=== PATIENT | female | born 1950 | race Caucasian/White ===

== ENCOUNTER → 2017-06-15 12:50 | Outpatient (CLI) | payer OTHER, SELFPAY ==
[2017-06-20 15:38] LABS: HPV Reflexed? NOT INDICATED
== END ==
PROVIDERS: Family Provider Internal Medicine; PCP Internal Medicine; Visit Provider Internal Medicine
DX: Z12.4 Encounter for screening for malignant neoplasm of cervix (principal)
CPT/HCPCS: 88175; G0145

== ENCOUNTER → 2017-07-06 14:54 | Outpatient (CLI) | payer OTHER, SELFPAY ==
--- NOTE | 2017-07-06 14:56 | HPBI_ITS ---
MAMMOGRAPHY - BILATERAL SCREENING REASON FOR EXAM: Female, 66 years old. Routine annual screening examination. PERTINENT HISTORY: Mother with breast cancer. Prior right stereotactic breast biopsy. History of endometrial carcinoma. TECHNIQUE: Digital bilateral breast jered (3D mammographic acquisition) in the CC and MLO projections. 2-D mediolateral oblique (MLO) and craniocaudad (CC) views of both breasts were obtained. CAD: Full Field Digital Mammography with Computer Added Detection was performed. COMPARISON: Comparison is made with prior study dated June 24, 2016 and June 09, 2015. FINDINGS: Breast Composition: The breasts are extremely dense, which lowers the sensitivity of mammography. There are no dominant masses or suspicious calcifications. Stable bilateral benign-appearing axillary lymph nodes. No other significant abnormalities are identified. There has been no significant change since the prior study. HPBI/SCREENING MAMM (CAD), BILAT IMPRESSION: Stable bilateral screening mammogram. Yearly follow-up mammogram recommended. (A) ASSESSMENT CATEGORY: BIRADS Category 2: Benign. A letter regarding these results will be sent to the patient by the facility within 30 days. Approximately 10% of breast cancers are not detected by mammography. A normal mammogram should not delay biopsy of a clinically suspicious abnormality. [id number] Electronically Signed: Jin Sunshine MD at 8:06 EST Tel [phone], Service support ,
== END ==
PROVIDERS: Family Provider Internal Medicine; PCP Internal Medicine; Visit Provider Internal Medicine
DX: Z12.31 Encounter for screening mammogram for malignant neoplasm of breast (principal); M81.0 Age-related osteoporosis without current pathological fracture
CPT/HCPCS: 77063; 77067

== ENCOUNTER → 2017-07-11 15:48 | Outpatient (CLI) | payer OTHER, SELFPAY ==
--- NOTE | 2017-07-11 15:50 | HPBD_ITS ---
STUDY: DUAL ENERGY X-RAY ABSORPTIOMETRY / DXA REASON FOR EXAM: Female, 66 years old. The patient is postmenopausal. Loss of height. TECHNIQUE: Bone Mineral Density (BMD) measurements of lumbar spine and bilateral hips were obtained. COMPARISON: Comparison is made with prior examination of June 09, 2015. FINDINGS: Lumbar Spine (L1-L4): g/cm2 (0.900) / T-score (-2.5) / Z-score (-0.9) Findings are suggestive of osteoporosis with a high fracture risk. Left Femur Total: g/cm2 (0.822) / T-score (-1.5) / Z-score (-0.3) Left Femoral Neck: g/cm2 (0.736) / T-score (-2.2) / Z-score (-0.7) Right Femur Total: g/cm2 (0.753) / T-score (-2.0) / Z-score (-0.9) Right Femoral Neck: g/cm2 (0.713) / T-score (-2.3) / Z-score (-0.9) The T-Scores on the most recent prior examination were: Lumbar Spine (L1-L4): There has been improvement of bone density since the previous examination. Left Femur Total: which represents an improvement of 1.5%. Right Femur Total: which represents a worsening of 1.7%. HPBD/Dexa Bone Density Study (HP) IMPRESSION: The patient is considered osteoporotic as outlined below according to World [place] Organization (WHO) criteria with a high fracture risk. There has been improvement of bone density since the previous examination. Reference Information: The T-score is the number of standard deviations above or below the standard which is normal for young adults at their peak bone mineral density. The World Health Organization (WHO) interprets the T-scores as follows: Above -1 Normal bone density Between -1 and -2.5 Osteopenia Equal to / or below -2.5 Osteoporosis As a practical clinical guideline, osteopenia may be graded as follows: Mild -1 through -1.5 Moderate -1.6 through -2.0 Severe -2.1 through -2.4 The Z-score is the number of standard deviations above or below age-matched controls. A Z-score of less than -1.5 would be considered abnormal. References: 1. NIH Osteoporosis and Related Bone Diseases http://www.osteo.org 2. International Society for Clinical Densitometry http://www.iscd.org 3. National Osteoporosis Foundation http://www.nof.org Electronically Signed: Jin Sunshine MD at 9:00 EST Tel [phone], Service support ,
== END ==
PROVIDERS: Family Provider Internal Medicine; PCP Internal Medicine; Visit Provider Internal Medicine
DX: M81.0 Age-related osteoporosis without current pathological fracture (principal); Z78.0 Asymptomatic menopausal state
CPT/HCPCS: 77080

== ENCOUNTER → 2018-09-05 12:53 | Outpatient (CLI) | payer MEDICARE, OTHER, SELFPAY ==
--- NOTE | 2018-09-05 12:55 | BI_ITS ---
MAMMOGRAPHY - BILATERAL SCREENING REASON FOR EXAM: Female, 67 years old. Routine annual screening examination. PERTINENT HISTORY: Mother with breast cancer. Remote right stereotactic breast biopsy. TECHNIQUE: Digital bilateral breast jered (3D mammographic acquisition) in the CC and MLO projections. 2-D mediolateral oblique (MLO) and craniocaudad (CC) views of both breasts were obtained. CAD: Full Field Digital Mammography with Computer Added Detection was performed. COMPARISON: Comparison is made with prior study dated July 06, 2017 and June 24, 2016. FINDINGS: Breast Composition: The breasts are extremely dense, which lowers the sensitivity of mammography. There are no dominant masses or suspicious calcifications. No other significant abnormalities are identified. There has been no significant change since the prior study. BI/SCREENING MAMM (CAD), BILAT IMPRESSION: Stable bilateral screening mammogram. Yearly follow-up mammogram recommended. (A) ASSESSMENT CATEGORY: BIRADS Category 1: Negative. A letter regarding these results will be sent to the patient by the facility within 30 days. Approximately 10% of breast cancers are not detected by mammography. A normal mammogram should not delay biopsy of a clinically suspicious abnormality. [id number] Electronically Signed: Jin Sunshine, at 15:15 EDT , Service support ,
== END ==
PROVIDERS: Family Provider Internal Medicine; PCP Internal Medicine; Referring Provider Internal Medicine; Visit Provider Internal Medicine
DX: Z12.31 Encounter for screening mammogram for malignant neoplasm of breast (principal)
CPT/HCPCS: 77063; 77067

== ENCOUNTER → 2019-09-26 13:24 | Outpatient (CLI) | payer MEDICARE, OTHER, SELFPAY ==
--- NOTE | 2019-09-26 13:28 | BI_ITS ---
MAMMOGRAPHY - BILATERAL DIAGNOSTIC REASON FOR EXAM: Female, 68 years old. Left breast lump. PERTINENT HISTORY: Mother with breast cancer. Remote right stereotactic breast biopsy. History of endometrial carcinoma. TECHNIQUE: Digital bilateral breast jered (3D mammographic acquisition) in the CC and MLO projections. 2-D mediolateral oblique (MLO) and craniocaudad (CC) views of both breasts were obtained. CAD: Full Field Digital Mammography with Computer Added Detection was performed. COMPARISON: Comparison is made with prior examination dated September 05, 2018 and July 06, 2017. FINDINGS: Breast Composition: The breasts are extremely dense, which lowers the sensitivity of mammography. There are no dominant masses or suspicious calcifications. No other significant abnormalities are identified. There has been no significant change since the prior study. BI/DIAG MAMM W/CAD, BILAT IMPRESSION: Stable bilateral diagnostic mammogram. With the patient''s history of a palpable left breast lump, correlation with ultrasound is recommended. ASSESSMENT CATEGORY: BIRADS Category 0: Incomplete. Need additional imaging evaluation. A letter regarding these results will be sent to the patient by the facility within 30 days. Approximately 10% of breast cancers are not detected by mammography. A normal mammogram should not delay biopsy of a clinically suspicious abnormality. Electronically Signed: Jin Sunshine, at 9:04 EDT , Service support ,
--- NOTE | 2019-09-26 13:28 | US_ITS ---
STUDY: ULTRASOUND BREAST - LEFT REASON FOR EXAM: Female, 68 years old. Palpable lump left breast. TECHNIQUE: Axial and longitudinal images of the LEFT breast were performed with a high resolution ultrasound transducer. # OF IMAGES: 24 COMPARISON: Comparison is made with prior mammogram done earlier today. FINDINGS: LEFT Breast: The medial lower quadrant of the left breast was examined by ultrasound. There is evidence of dense fibroglandular tissue. No solid or cystic mass lesion is seen. US/Breast Limited Unilateral IMPRESSION: No sonographic abnormality is seen. ASSESSMENT CATEGORY: BIRADS Category 1: Negative. A letter regarding these results will be sent to the patient by the facility within 30 days. Electronically Signed: Jin Sunshine, at 9:05 EDT , Service support ,
--- NOTE | 2019-09-26 13:35 | BD_ITS ---
STUDY: DUAL ENERGY X-RAY ABSORPTIOMETRY / DXA REASON FOR EXAM: Female, 68 years old. 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 COMPARISON: Comparison is made with prior examination of July 11, 2017. FINDINGS: Lumbar Spine (L1-L4): g/cm2 (0.825) / T-score (-3.1) / Z-score (-1.5) Findings are suggestive of osteoporosis with a high fracture risk. Left Femur Total: g/cm2 (0.786) / T-score (-1.8) / Z-score (-0.5) Left Femoral Neck: g/cm2 (0.719) / T-score (-2.3) / Z-score (-0.8) Right Femur Total: g/cm2 (0.718) / T-score (-2.3) / Z-score (-1.0) Right Femoral Neck: g/cm2 (0.706) / T-score (-2.4) / Z-score (-0.9) The T-Scores on the most recent prior examination were: Lumbar Spine (L1-L4): There has been worsening of bone density since the previous examination. Left Femur Total: which represents a worsening of 4.4%. Right Femur Total: which represents a worsening of 4.6%. BD/Dexa Bone Density Study IMPRESSION: The patient is considered osteoporotic as outlined below according to World Sandoval Organization (WHO) criteria with a high fracture risk. There has been worsening of bone density since the previous examination. Reference Information: The T-score is the number of standard deviations above or below the standard which is normal for young adults at their peak bone mineral density. The World Health Organization (WHO) interprets the T-scores as follows: Above -1 Normal bone density Between -1 and -2.5 Osteopenia Equal to / or below -2.5 Osteoporosis As a practical clinical guideline, osteopenia may be graded as follows: Mild -1 through -1.5 Moderate -1.6 through -2.0 Severe -2.1 through -2.4 The Z-score is the number of standard deviations above or below age-matched controls. A Z-score of less than -1.5 would be considered abnormal. References: 1. NIH Osteoporosis and Related Bone Diseases http://www.osteo.org 2. International Society for Clinical Densitometry http://www.iscd.org 3. National Osteoporosis Foundation http://www.nof.org Electronically Signed: Jin Sunshine, at 13:43 EDT , Service support ,
== END ==
PROVIDERS: PCP Internal Medicine; Referring Provider Internal Medicine; Visit Provider Internal Medicine
DX: N63.0 Unspecified lump in unspecified breast (principal); M81.0 Age-related osteoporosis without current pathological fracture; R92.8 Other abnormal and inconclusive findings on diagnostic imaging of breast
CPT/HCPCS: 76642; 77062; 77066; 77080; G0279

== ENCOUNTER → 2021-01-18 08:16 | Outpatient (CLI) | payer MEDICARE, OTHER, SELFPAY ==
--- NOTE | 2021-01-18 08:19 | US_ITS ---
History: Soft tissue mass Ultrasound of the neck: Findings: Ultrasound images of the region of the right sternal clavicular joint demonstrates a 5 mm nodular density consistent with a lymph node demonstrating normal internal architecture. No separate mass or fluid collection is seen. IMPRESSION: 5 mm lymph node. No evidence of a mass. at 1642 Reported and signed by: Armando Graham MD Electronically Signed: Armando Graham MD at 16:41 EDT Tel , Service support , US/Chest
== END ==
PROVIDERS: PCP Internal Medicine; Referring Provider Internal Medicine; Visit Provider Internal Medicine
DX: M89.8X8 Other specified disorders of bone, other site (principal)
CPT/HCPCS: 76604

== ENCOUNTER → 2021-02-03 07:33 | Outpatient (CLI) | payer MEDICARE, OTHER, SELFPAY ==
--- NOTE | 2021-02-03 07:30 | BI_ITS ---
MAMMOGRAPHY - BILATERAL SCREENING REASON FOR EXAM: Female, 70 years old. Routine annual screening examination. PERTINENT HISTORY: Mother with breast cancer. Remote right stereotactic breast biopsy. TECHNIQUE: Digital bilateral breast ángela (3D mammographic acquisition) in the CC and MLO projections. 2-D mediolateral oblique (MLO) and craniocaudad (CC) views of both breasts were obtained. CAD: Full Field Digital Mammography with Computer Added Detection was performed. COMPARISON: Comparison is made with prior study dated 09/26/2019 and 09/05/2018. FINDINGS: Breast Composition: The breasts are extremely dense, which lowers the sensitivity of mammography. There are no dominant masses or suspicious calcifications. Stable benign-appearing bilateral axillary lymph nodes. No other significant abnormalities are identified. There has been no significant change since the prior study. BI/SCRN MAMM (CAD)W/ÁNGELA BILAT IMPRESSION: Stable bilateral screening mammogram. Yearly follow-up mammogram recommended. (A) ASSESSMENT CATEGORY: BIRADS Category 2: Benign. A letter regarding these results will be sent to the patient by the facility within 30 days. Approximately 10% of breast cancers are not detected by mammography. A normal mammogram should not delay biopsy of a clinically suspicious abnormality. [id number] Electronically Signed: Jin Sunshine MD at 8:42 EDT , Service support ,
== END ==
PROVIDERS: PCP Internal Medicine; Referring Provider Internal Medicine; Visit Provider Internal Medicine
DX: Z12.31 Encounter for screening mammogram for malignant neoplasm of breast (principal); Z80.3 Family history of malignant neoplasm of breast
CPT/HCPCS: 77063; 77067

== ENCOUNTER → 2021-02-09 13:06 | Outpatient (CLI) | payer MEDICARE, OTHER, SELFPAY ==
--- NOTE | 2021-02-09 13:10 | RAD_ITS ---
STUDY: X-RAY - CERVICAL SPINE REASON FOR EXAM: Female, 70 years old. Pain. Evaluate for disc degeneration. TECHNIQUE: 5 view(s) of the cervical spine were obtained. COMPARISON: None FINDINGS: Osteopenia. Normal anterior atlantoaxial articulation. Normal odontoid process. Normal cervical lordosis. Diffuse uncovertebral and facet sclerosis. Intervertebral disc space narrowing at C4-5, C5-6, C6-7 and C7-T1 with osteophyte formation most marked at C5-6, C6-7 and C7-T1. Anterior bony neural foraminal encroachment and C4-5, C5-6 and C6-7 and C7-T1 on the right and mild anterior bony neural foraminal encroachment at C4-5 and C5-6 on the left. The soft tissue structures are unremarkable. RAD/Cerv Spine 4 or 5 Views IMPRESSION: Osteopenia with diffuse moderate cervical spondylosis as described. No acute abnormality, evidence of erosive changes or fusion. Electronically Signed: Francisco Dan MD at 9:52 EDT , Service support ,
== END ==
PROVIDERS: PCP Internal Medicine; Referring Provider Chiropractor; Visit Provider Chiropractor
DX: M99.01 Segmental and somatic dysfunction of cervical region (principal); M54.2 Cervicalgia; M99.05 Segmental and somatic dysfunction of pelvic region; M51.36 Other intervertebral disc degeneration, lumbar region; M99.03 Segmental and somatic dysfunction of lumbar region; M51.35 Other intervertebral disc degeneration, thoracolumbar region; M99.02 Segmental and somatic dysfunction of thoracic region; M51.34 Other intervertebral disc degeneration, thoracic region
CPT/HCPCS: 72050

== ENCOUNTER → 2021-04-19 07:58 | Outpatient (CLI) | payer MEDICARE, OTHER, SELFPAY ==
--- NOTE | 2021-04-19 08:00 | RAD_ITS ---
PROCEDURE: SMALL BOWEL SERIES DATE OF EXAMINATION: 04/19/2021.. INDICATION: Female, 70 years old. Irritable bowel syndrome. Pelvic irradiation due to endometrial carcinoma. PHYSICIAN: Jin Sunshine M.D. FLUOROSCOPY TIME (if supplied): (0:36) minutes/seconds. 9 images were obtained. TECHNIQUE: Radiographic and fluoroscopic images were taken of the small intestine following the ingestion of barium. COMPARISON: None. FINDINGS: A preliminary supine KUB was obtained. There is an unremarkable bowel gas pattern. Fecal material is present throughout the colon. Phleboliths are present within the pelvis. The lung bases are unremarkable. Surgical clips are seen in the pelvis and compared with prior hysterectomy. The patient orally ingested approximately 12 ounces of thin barium Normal visualized fundus, body, and antrum of the stomach. Normal duodenal bulb, C-loop, and proximal jejunum. Normal visualized mucosal folds of the jejunum and ileum. There are no demonstrated dilatations, strictures, or masses of the small intestine. There is no mass displacement of the loops of small intestine. There is a normal motor pattern with barium reaching the colon within approximately 30 minutes. Spot films under fluoroscopic observation demonstrated a normal terminal ileum and ileocecal valve. RAD/Small Bowel Series Only IMPRESSION: Normal small bowel series. Electronically Signed: Jin Sunshine MD at 15:33 EST , Service support ,
== END ==
PROVIDERS: PCP Internal Medicine; Referring Provider Internal Medicine; Visit Provider Internal Medicine
DX: K58.9 Irritable bowel syndrome, unspecified (principal)
CPT/HCPCS: 74250

== ENCOUNTER → 2022-02-09 | Outpatient (CLI) | payer MEDICARE, OTHER, SELFPAY ==
--- NOTE | 2022-02-09 11:20 | BI_ITS ---
MAMMOGRAPHY - BILATERAL SCREENING REASON FOR EXAM: Female, 71 years old. Routine annual screening examination. PERTINENT HISTORY: Mother with breast cancer. Prior right stereotactic breast biopsy. TECHNIQUE: Digital bilateral breast ángela (3D mammographic acquisition) in the CC and MLO projections. 2-D mediolateral oblique (MLO) and craniocaudad (CC) views of both breasts were obtained. CAD: Full Field Digital Mammography with Computer Added Detection was performed. COMPARISON: Comparison is made with prior examination of 02/03/2021 and 09/26/2019. FINDINGS: Breast Composition: The breasts are extremely dense, which lowers the sensitivity of mammography. There are no dominant masses or suspicious calcifications. No other significant abnormalities are identified. There has been no significant change since the prior study. BI/SCRN MAMM (CAD)W/ÁNGELA BILAT IMPRESSION: Stable bilateral screening mammogram. Yearly follow-up mammogram recommended. (A) ASSESSMENT CATEGORY: BIRADS Category 1: Negative. A letter regarding these results will be sent to the patient by the facility within 30 days. Approximately 10% of breast cancers are not detected by mammography. A normal mammogram should not delay biopsy of a clinically suspicious abnormality. [id number] Electronically Signed: Jin Sunshine MD at 12:21 EDT ,
--- NOTE | 2022-02-09 11:25 | BD_ITS ---
STUDY: DUAL ENERGY X-RAY ABSORPTIOMETRY / DXA REASON FOR EXAM: Female, 71 years old. 733.00OsteoporosisBONE DENSITY REASON FOR EXAM TECHNIQUE: Bone Mineral Density (BMD) measurements of lumbar spine and bilateral hips were obtained. COMPARISON: Comparison is made with prior study dated 09/26/2019. FINDINGS: Lumbar Spine (L1-L4): g/cm2 (0.718) / T-score (-3.1) / Z-score (-1.0) Findings are suggestive of osteoporosis with a high fracture risk. Left Femur Total: g/cm2 (0.703) / T-score (-2.0) / Z-score (-0.5) Left Femoral Neck: g/cm2 (0.585) / T-score (-2.4) / Z-score (-0.6) Right Femur Total: g/cm2 (0.711) / T-score (-1.9) / Z-score (-0.4) Right Femoral Neck: g/cm2 (0.587) / T-score (-2.4) / Z-score (-0.6) The T-Scores on the most recent prior examination were: Lumbar Spine (L1-L4): There has been worsening of bone density since the previous examination. Left Femur Total: which represents a worsening of 3.2%. Right Femur Total: which represents an improvement of 7.7%. BD/Dexa Bone Density Study IMPRESSION: The patient is considered osteoporotic as outlined below according to World Sand[place] Organization (WHO) criteria with a high fracture risk. There has been worsening of bone density since the previous examination. Reference Information: The T-score is the number of standard deviations above or below the standard which is normal for young adults at their peak bone mineral density. The World Health Organization (WHO) interprets the T-scores as follows: Above -1 Normal bone density Between -1 and -2.5 Osteopenia Equal to / or below -2.5 Osteoporosis As a practical clinical guideline, osteopenia may be graded as follows: Mild -1 through -1.5 Moderate -1.6 through -2.0 Severe -2.1 through -2.4 The Z-score is the number of standard deviations above or below age-matched controls. A Z-score of less than -1.5 would be considered abnormal. References: 1. NIH Osteoporosis and Related Bone Diseases www osteo.org 2. International Society for Clinical Densitometry www iscd.org 3. National Osteoporosis Foundation www nof.org Electronically Signed: Jin Sunshine MD at 11:08 EDT ,
== END | disposition home or self-care (01) ==
LOC: OPBD 11:17
PROVIDERS: PCP Internal Medicine; Referring Provider Internal Medicine; Visit Provider Internal Medicine
DX: Z12.31 Encounter for screening mammogram for malignant neoplasm of breast (principal); M81.0 Age-related osteoporosis without current pathological fracture; Z80.3 Family history of malignant neoplasm of breast; M85.80 Other specified disorders of bone density and structure, unspecified site
CPT/HCPCS: 77063; 77067; 77080

== ENCOUNTER → 2023-02-13 | Outpatient (CLI) | payer MEDICARE, OTHER, SELFPAY ==
--- NOTE | 2023-02-13 10:09 | BI_ITS ---
MAMMOGRAPHY - BILATERAL SCREENING REASON FOR EXAM: Female, 72 years old. Routine annual screening examination. PERTINENT HISTORY: Mother with breast cancer. History of endometrial and colorectal carcinoma. Remote right stereotactic breast biopsy. TECHNIQUE: Digital bilateral breast ángela (3D mammographic acquisition) in the CC and MLO projections. 2-D mediolateral oblique (MLO) and craniocaudad (CC) views of both breasts were obtained. CAD: Full Field Digital Mammography with Computer Added Detection was performed. COMPARISON: Comparison is made with prior study February 09, 2022 and February 03, 2021. FINDINGS: Breast Composition: The breasts are extremely dense, which lowers the sensitivity of mammography. There are no dominant masses or suspicious calcifications. Stable appearance of the fat-containing bilateral axillary lymph nodes. No other significant abnormalities are identified. There has been no significant change since the prior study. BI/SCRN MAMM (CAD)W/ÁNGELA BILAT IMPRESSION: Stable bilateral screening mammogram. Yearly follow-up mammogram recommended. (A) ASSESSMENT CATEGORY: BIRADS Category 2: Benign. A letter regarding these results will be sent to the patient by the facility within 30 days. Approximately 10% of breast cancers are not detected by mammography. A normal mammogram should not delay biopsy of a clinically suspicious abnormality. [id number] Electronically Signed: Jin Sunshine MD at 9:07 EDT ,
== END | disposition home or self-care (01) ==
PROVIDERS: PCP Internal Medicine; Referring Provider Internal Medicine; Visit Provider Internal Medicine
DX: Z12.31 Encounter for screening mammogram for malignant neoplasm of breast (principal)
CPT/HCPCS: 77063; 77067

== ENCOUNTER → 2023-06-23 | Outpatient (CLI) | payer MEDICARE, OTHER, SELFPAY ==
--- NOTE | 2023-06-23 14:42 | VDLE_ITS ---
Version 2 Reason For Study: Left leg pain RIGHT LEFT CFV is compressible, spontaneous, phasic, GSV is normal. competent and demonstrates normal CFV is compressible, spontaneous, phasic, augmentation. competent, and demonstrates normal Procedure augmentation. This is a venous duplex using B-mode, color FV is compressible, spontaneous, phasic, flow and spectral Doppler. competent and demonstrates normal augmentation. POP V is compressible, spontaneous, phasic, competent and demonstrates normal augmentation. T/P Trunk is compressible. PTV is compressible. LT PerV is compressible. Nonvascularized structure noted at the prox calf that measures 0.65 x 1.68 x 4.1 cm. VL/Venous Duplex US, Unilateral Interpretation Summary Deep veins of the left lower extremity are patent and compressible segmentally. There is no evidence of left lower extremity deep vein thrombosis. Valvular competence appears intac t within the proximal deep venous system on the left . The left great saphenous vein appears patent a nd compressible segmentally. A non-vascular, hypoechoic structure is noted in the left proximal calf, measuring 0.65 cm x 1.68 cm x 4.1 cm. This may represent a seroma. Clinical correlation is adv ised. The right common femoral vein is patent and compressible . Ordering Physician: Jovanna Moore Referring Physician: Jovanna Moore Performed By: Charity Tate RVT
== END | disposition home or self-care (01) ==
PROVIDERS: PCP Internal Medicine; Referring Provider Internal Medicine; Visit Provider Internal Medicine
DX: M79.662 Pain in left lower leg (principal)
CPT/HCPCS: 93971

== ENCOUNTER → 2024-05-30 | Outpatient (CLI) | payer MEDICARE, OTHER, SELFPAY ==
--- NOTE | 2024-05-30 10:28 | BD_ITS ---
STUDY: DUAL ENERGY X-RAY ABSORPTIOMETRY / DXA REASON FOR EXAM: Female, 73 years old. 627.8Menopausal postmenopausal BONE DENSITY REASON FOR EXAM TECHNIQUE: Bone Mineral Density (BMD) measurements of lumbar spine and bilateral hips were obtained. COMPARISON: Comparison is made with prior study February 09, 2022. FINDINGS: Lumbar Spine (L1-L4): g/cm2 (0.774) / T-score (-2.8) / Z-score (-0.5) Findings are suggestive of osteoporosis with a high fracture risk. Left Femur Total: g/cm2 (0.688) / T-score (-2.1) / Z-score (-0.5) Left Femoral Neck: g/cm2 (0.573) / T-score (-2.5) / Z-score (-0.6) Right Femur Total: g/cm2 (0.718) / T-score (-1.8) / Z-score (-0.3) Right Femoral Neck: g/cm2 (0.662) / T-score (-1.7) / Z-score (0.2) The T-Scores on the most recent prior examination were: Lumbar Spine (L1-L4): There has been improvement of bone density since the previous examination. Left Femur Total: which represents a worsening of 2.2%. Right Femur Total: which represents an improvement of 0.9%. BD/Dexa Bone Density Study IMPRESSION: The patient is considered osteoporotic as outlined below according to World [place] Organization (WHO) criteria with a high fracture risk. There has been improvement of bone density since the previous examination. Reference Information: The T-score is the number of standard deviations above or below the standard which is normal for young adults at their peak bone mineral density. The World Health Organization (WHO) interprets the T-scores as follows: Above -1 Normal bone density Between -1 and -2.5 Osteopenia Equal to / or below -2.5 Osteoporosis As a practical clinical guideline, osteopenia may be graded as follows: Mild -1 through -1.5 Moderate -1.6 through -2.0 Severe -2.1 through -2.4 The Z-score is the number of standard deviations above or below age-matched controls. A Z-score of less than -1.5 would be considered abnormal. References: 1. NIH Osteoporosis and Related Bone Diseases www osteo.org 2. International Society for Clinical Densitometry www iscd.org 3. National Osteoporosis Foundation www nof.org Electronically Signed: Jin Sunshine MD at 12:30 EST ,
--- NOTE | 2024-05-30 10:28 | BI_ITS ---
MAMMOGRAPHY - BILATERAL SCREENING REASON FOR EXAM: Female, 73 years old. Routine annual screening examination. PERTINENT HISTORY: Mother with breast cancer. Remote right stereotactic breast biopsy. History of endometrial carcinoma. TECHNIQUE: Digital bilateral breast ángela (3D mammographic acquisition) in the CC and MLO projections. 2-D mediolateral oblique (MLO) and craniocaudad (CC) views of both breasts were obtained. CAD: Full Field Digital Mammography with Computer Added Detection was performed. COMPARISON: Comparison is made with prior study February 13, 2023 and February 09, 2022. FINDINGS: Breast Composition: The breasts are extremely dense, which lowers the sensitivity of mammography. There are no dominant masses or suspicious calcifications. Stable bilateral fat-containing axillary lymph nodes. No other significant abnormalities are identified. There has been no significant change since the prior study. BI/SCRN MAMM (CAD)W/ÁNGELA BILAT IMPRESSION: Stable bilateral screening mammogram. Yearly follow-up mammogram recommended. (A) ASSESSMENT CATEGORY: BIRADS Category 2: Benign. A letter regarding these results will be sent to the patient by the facility within 30 days. Approximately 10% of breast cancers are not detected by mammography. A normal mammogram should not delay biopsy of a clinically suspicious abnormality. [id number] Electronically Signed: Jin Sunshine MD at 12:30 EST ,
== END | disposition home or self-care (01) ==
LOC: OPBD 10:25
PROVIDERS: PCP Internal Medicine; Referring Provider Internal Medicine; Visit Provider Internal Medicine
DX: Z12.31 Encounter for screening mammogram for malignant neoplasm of breast (principal); Z78.0 Asymptomatic menopausal state; M81.0 Age-related osteoporosis without current pathological fracture; Z80.3 Family history of malignant neoplasm of breast
CPT/HCPCS: 77063; 77067; 77080

== ENCOUNTER 2024-09-08 09:47 | Emergency (ER) | payer MEDICARE, OTHER, SELFPAY ==
[2024-09-08 09:48] VITALS: BP 124/81; PULSE 73; RESP 18; TEMP 37.1; O2SAT 98; BMI 22.3
--- NOTE | 2024-09-08 10:09 | EDS_ITS ---
HPI History of Present Illness Chief Complaint: General Illness Informant: patient Onset/Context/Timing Onset: Days Context: Gradual Onset Timing: Continuous Current Severity: Mild Maximum Severity: Mild Narrative Narrative: 73-year-old female history of colorectal cancer with a rectal resection, total hysterectomy and bladder resection. She has both a ostomy and urostomy. She has had plenty of output from both. She just feels dehydrated. Generally weak. She denies any vomiting. She denies any fever. She denies any abdominal pain. Recently was vacationing in [place]. Believes that she may be dehydrated. Prior similar symptoms: Yes Recent Illness/Hospitalization: No PFSH [facility] Medical History B12 deficiency Glaucoma Mitral valve prolapse Atherosclerosis of aorta Allergic rhinitis Radiation enteritis Irritable bowel syndrome with diarrhea Rosacea, unspecified Arthritis Age-related osteoporosis without current pathological fracture Radiation cystitis Urethral fistula Breast nodule Diarrhea Depression Anxiety Home Medications ?Medication ?Instructions ?Recorded ?Last Taken ?Type Lactobac no.2-Bifidobac no.1-S. 1 cap PO BID 02/24/22 09/08/24 History thermo 112.5 billion cell capsule (VSL#3) calcium carbonate 500 mg PO BID 02/24/2209/08 History cholecalciferol (vitamin D3) 50 50 mcg PO DAILY 09/08/24 History mcg (2,000 unit) capsule cyanocobalamin (vitamin B-12) 100 mcg IM QMONTH 08/31/24 History 1,000 mcg/mL injection kit escitalopram oxalate 20 mg tablet 20 mg PO DAILY 02/2409/08/24 History (Lexapro) latanoprost 0.005 % eye drops 1 drp ophthalmic (eye) D AILY 02/24/22 09/07/24 History raloxifene 60 mg tablet 60 mg PO DAILY 02/24/22/08/30 History loperamide 2 mg capsule 4 mg PO DAILY PRN loose stoo l 09/08/24 09/07/24 History (Anti-Diarrheal (loperamide)) timolol maleate 0.5 % eye drops 1 drp ophthalmic (eye) DAILY 09/08/24 09/08/24 History Allergy/AdvReac Type Severity Reaction Status Date / Time No Known Allergies Allergy Verified 02/24/22 15:49 Family History Father , 50, MVA No problems noted. Mother , 62 Breast cancer CHF (congestive heart failure) Surgical History H/O: hysterectomy History of carpal tunnel release Social History household members: spouse current occupational status: retired leisure activities: volunteer work Smoking Status: Never smoker alcohol intake: never ROS ROS ED ROS Narrative Generalized weakness. Constitutional Constitutional ED: Denies chills or fever(s) Eyes Eyes: Denies blurry vision ENT ENT ED: Denies ear pain Cardiovascular Cardiovascular: Denies chest pain Respiratory/Chest Respiratory/Chest: Denies cough Gastrointestinal Gastrointestinal: Denies abdominal pain or vomiting Genitourinary Genitourinary ED: Denies dysuria Musculoskeletal Musculoskeletal: Denies arthralgias Integumentary Denies abscess Neurologic Neurologic: Denies headache(s) Psychiatric Psychiatric: Denies anxiety Endocrine Endocrinology: Denies cold intolerance Hematologic/Lymphatic Hematologic/Lymphatic: Reports none Allergic/Immunologic Allergic/Immunologic ED: Denies mouth swelling, tongue swelling or urticaria EXAM Physical Exam Narrative Exam Narrative: Well-appearing 73-year-old female. Vital signs are stable afebrile. H EENT exam pupils round reactive light. Mytrex membranes. Neck nontender no lymphadenopathy. Lungs clear to auscultation bilaterally. Heart regular rhythm rate about 73 no murmur. Chest wall ribs nontender. Abdomen soft nontender. She has both a urostomy and ileostomy. Clear urine in the urostomy bag. Abdomen is nondistended normal bowel sounds without peritoneal signs. No obstruction. Moving all 4 extremities. Nontender no edema. Normal strength. Back nontender. Neurologically she is awake alert. No focal motor or sensory deficits. Clinically looks well. Const Vital Signs: 09/08/24 09:48 09/08/24 10:23 09/08/24 11:16 Temperature 98.7 F 97.9 F Temperature Source Oral Oral Pulse Rate 73 64 Respiratory Rate 18 16 Respiratory Effort Normal Non-Labored Respiratory Pattern Normal Blood Pressure 124/81 H 124/76 H Blood Pressure Mean 95 92 Pulse Ox 98 97 Oxygen Delivery Method Room Air Room Air Positive well nourished and well developed; Negative for obese, cachectic, contractures or unkempt General Appearance ED: well developed and NAD; Negative for unkempt, cachectic, contractures, cyanotic, diaphoretic or pallor Nutritional Appearance: Negative for cachectic or obese HEENT Reports moist mucous membranes Negative for trauma or tenderness Eyes PERRL and EOMs intact bilaterally Neck no lymphadenopathy, supple and no JVD General: Negative for tenderness Chest Wall inspection of chest normal and palpation of chest normal Resp normal respiratory effort and clear to auscultation bilaterally Cardio regular rate, regular rhythm, S1 normal heart sound, S2 normal heart sound and no murmurs GI normal to inspection, nondistended, normoactive bowel sounds, non-tender, non- distended and no masses GI Narrative: Nontender. Nondistended. Both a ileostomy and urostomy. Clear urine in urostomy. Inspection: Negative for abdominal distention Auscultation: normoactive bowel sounds Palpation: soft; Negative for tender, guarding or rebound tenderness present Back/Spine no CVA tenderness General Back: Negative for CVA tenderness Cervical Spine: Negative for cervical spine tenderness Thoracic Spine / Upper Back: Negative for thoracic spinal tenderness or paraspinal muscle tenderness Lumbar Spine / Lower Back: Negative for lumbar spinal tenderness Extremity normal to inspection General Extremety ED: Negative for edema or tenderness General Extremity: Negative for edema Neuro oriented x3, CN's II-XII intact bilaterally and no sensory deficits noted Sensorium / Orientation: alert; Negative for orientation impaired, lethargic or stuporous Motor Exam: strength 5/5 throughout; Negative for general weakness or strength abnormal Psych mental status grossly normal Appearance: Negative for unkempt Attitude: No agitated Mood & Affect: Negative for depressed or tearful Skin no rashes or lesions noted and no wounds General Skin Exam: Negative for jaundice or pallor Lesions: No lesion noted Rashes: No rashes noted Trauma: Negative for abrasion Wounds: Negative for wounds noted MDM MDM MDM Narrative Medical decision making narrative: 73-year-old female history of colorectal cancer and bladder cancer. Both ostomy and urostomy. Concerned she may be dehydrated. Clinically looks well. She wi ll be given a liter normal saline. Screening labs will be obtained. Currently at this time does not need any imaging. Repeat exam around 11:58 AM patient doing well. We went over her test results. BUN/creatinine are slightly elevated 22 and 1.35. She will give a liter of fluid. She can be comfortably discharged home to follow-up with her physicians from the [facility] about increased output from her ostomy. Instructed to drink plenty of fluids. I have her primary care physician or their group for Dr. Wiggins on page. History & Record Review Discussion w/independent historian: Patient Additional record(s) reviewed:: Prior inpatient record, Prior outpatient record, Prior ED visit and Prior labs Lab Data Attestation: I reviewed the patient's lab results. Lab results narrative: CBC shows a white count 3.4. H&H 12 and 37. Platelets 399. Chemistry shows sodium 137. Gap 11. BUN and creatinine 22 and 1.35. Glucose 98. Liver enzymes are normal. Labs: Laboratory Results - last 24 hr 09/08/24 10:17 WBC 3.4 L RBC 4.62 Hgb 12.0 Hct 37.8 MCV 81.8 MCH 26.0 L MCHC 31.7 L RDW Std Deviation 46.6 H RDW Coeff of Pankaj 15.6 H Plt Count 399 MPV 9.0 Immature Gran % (Auto) 0.300 Neut % (Auto) 58.1 Lymph % (Auto) 27.4 Mckenzie % (Auto) 10.9 H Eos % (Auto) 2.4 Baso % (Auto) 0.9 Absolute Neuts (auto) 2.0 Absolute Lymphs (auto) 0.93 Nucleated RBC % 0 Sodium 137 Potassium 3.3 Chloride 108 Carbon Dioxide 19.0 L Anion Gap 11 BUN 22 H Creatinine 1.35 H Estim Creat Clear Calc 31.62 L Est GFR (MDRD) Non-Af 42 L BUN/Creatinine Ratio 16.2 Glucose 98 Calcium 9.1 Total Bilirubin 0.33 AST 27 ALT 14 Alkaline Phosphatase 82 Total Protein 7.5 Albumin 3.8 Globulin 3.7 Albumin/Globulin Ratio 1.0 Discharge Plan Triage Chief Complaint: General Illness ED Provider: Yonatan Woodson Dx/Rx/DC Orders Clinical Impression: Acute dehydration, History of colorectal cancer Prescriptions: No Action escitalopram oxalate [Lexapro] 20 mg tablet 20 mg PO DAILY raloxifene 60 mg tablet 60 mg PO DAILY cyanocobalamin (vitamin B-12) 1,000 mcg/mL kit 100 mcg IM QMONTH Patient Comments: PT TAKES AT END OF MONTH VSL#3 112.5 billion cell capsule 1 cap PO BID latanoprost 0.005 % drops 1 drp ophthalmic (eye) DAILY Patient Comments: PT TAKES AT BEDTIME calcium carbonate 500 mg calcium (1,250 mg) tablet 500 mg PO BID cholecalciferol (vitamin D3) 50 mcg (2,000 unit) capsule 50 mcg PO DAILY loperamide [Anti-Diarrheal (loperamide)] 2 mg capsule 4 mg PO DAILY PRN (Reason: loose stool) timolol maleate 0.5 % drops 1 drp ophthalmic (eye) DAILY Primary Care Provider: Jovanna Moore Referrals: Jovanna Moore MD [Primary Care Provider] - As soon as possible Activity Restrictions/Additional Instructions: Plenty of fluids and rest. Call and follow-up with your primary care physician or your physicians from the [facility] about the high output from your ostomy. Your BUN today was 22 and your creatinine was elevated 1.35. Print Language: Japanese Disposition Disposition: Home, Self Care
[2024-09-08] MEDS: 0.9% Normal Saline (1000mL) 1,000 ML 1000 ML IV (10:19)
[2024-09-08 10:31] LABS: Absolute Lymphocyte Count 0.93 X10^3/uL (0.83-4.51); Basophil# 0.03 X10^3/uL; Basophil% 0.9 % (0-1); Eosinophil# 0.08 X10^3/uL; Eosinophils% 2.4 % (0-5); Hematocrit 37.8 % (37-47); Lymphocyte # 0.93 X10^3/ul (0.83-4.51); Lymphocyte % 27.4 % (19-41); Mean Corp Hgb Conc 31.7 g/dL (32-36); Mean Corpuscular Volume 81.8 fL (81-99); Monocyte# 0.37 X10^3/uL; Monocyte% 10.9 % (0-10); NRBC Flagged by Analyzer 0 % (0-5); Neutrophil # 1.98 X10^3/uL (2.7-7.7); Neutrophil % 58.1 % (47-70); Platelet Count 399 K/mm3 (150-450); RBC Distribution Width CV 15.6 % (11.6-14.6); RBC Distribution Width SD 46.6 fl (35.1-43.9); Red Blood Count 4.62 M/mm3 (4.2-5.4); White Blood Count 3.4 K/mm3 (4.4-11.0)
[2024-09-08 11:15] LABS: AST(SGOT) 27 U/L (<=31); Alanine Aminotransfer ALT/SGPT 14 U/L (<=34); Albumin, Serum 3.8 g/dL (3.4-4.8); Alkaline Phosphatase 82 U/L (35-104); Anion Gap 11 (5-15); BUN 22 mg/dL (4-19); BUN/Creat Ratio 16.2 RATIO (10-20); Calcium,Total 9.1 mg/dL (7.6-11.0); Chloride 108 mmol/L (98-108); Creatinine, Serum 1.35 mg/dL (0.70-1.20); EST Glomerular Filtration Rate 42 (>60); Estimated Creatinine Clearance 31.62 ml/min (50-250); Globulin 3.7 g/dL (2.2-4.2); Glucose 98 mg/dL (70-99); Potassium 3.3 mmol/L (3.3-5.1); Protein, Total 7.5 g/dL (5.9-8.4); Sodium Level 137 mmol/L (133-145); Total Bilirubin 0.33 mg/dL (0.00-1.30)
[2024-09-08 11:16] VITALS: BP 124/76; PULSE 64; RESP 16; TEMP 36.6; O2SAT 97
== END 2024-09-08 12:22 | disposition home or self-care (01) ==
PROVIDERS: Emergency Provider Emergency Medicine; PCP Internal Medicine; Visit Provider Emergency Medicine
DX: E86.0 Dehydration (principal); Z93.2 Ileostomy status; Z90.710 Acquired absence of both cervix and uterus; Z80.0 Family history of malignant neoplasm of digestive organs
CPT/HCPCS: 80053; 85025; 96360; 99282; A4216